=== PATIENT | female | born 1990 | race Caucasian/White ===

== ENCOUNTER 2024-11-24 12:19 | Observation (INO) | payer OTHER, SELFPAY ==
[2024-11-24] VITALS (14 sets, daily range): BP systolic 105–144; BP diastolic 68–89; PULSE 70–103; RESP 12–24; TEMP 36.2–36.7; O2SAT 94–100; BMI 22.8
--- NOTE | 2024-11-24 | PATH_ITS ---
[facility] Accession Number: [id number] No. of containers..01 Tissue . 01 Material submitted: . product of conception - PRODUCT OF CONCEPTION . 01 Diagnosis: PRODUCTS OF CONCEPTION: Products of conception identified. Outside consultation requested to evaluate for molar gestation ([facility]); results will be reported as an addendum. ADITHYA 11/28/2024 1400 Local . 01 Electronically signed: . Mirta Chang MD, Pathologist NPI- [id number] . 01 Gross description: . Received in formalin with two identifiers and products of conception, are multiple horan spongy to hemorrhagic soft tissue fragments aggregating to 14.8 x 11.1 x 4.5 cm. No tissue is identified. Awning Spreader sections are submitted in cassettes A1-A2. ([id number]) /ADITHYA 11/25/2024 2106 Local . 01 Pathologist provided ICD-10: T83.39XS . 01 CPT . 583541 Specimen Comment: A courtesy copy of this report has been sent to [facility] Pathology Performed at: [address] [address], [place], [place] [id number] MD Jose Antonio Templeton MD Phone: [phone]
--- NOTE | 2024-11-24 13:34 | ED_ITS ---
HPI - General Adult General Chief complaint: Urogenital-Female Stated complaint: experiencing severe prolapse, bleeding Time Seen by Provider: 11/24/24 12:24 Source: patient Mode of arrival: Ambulatory History of Present Illness HPI narrative: Patient was a 34-year-old female. . Two prior vaginal deliveries. Last vaginal delivery was 4 years ago. Has a ParaGard IUD that was placed approximately 2 weeks ago. She was here for evaluation of what she states is a concern for cervical prolapse. She also reports constipation. Issues with urination to include urgency and frequency. No prior abdominal surgeries. No vomiting. No fevers. She was sexually active with a new partner. No history of sexually transmitted diseases. Related Data Home Medications Medication Instructions Recorded Confirmed lactic acid 1.8 %-citric ac 1 vaginal 10/24/24 11/07/24 %-potassium bitartate 0.4 % vaginal gel (Phexxi) thyroid (pork) 180 mg tablet 180 mg PO DAILY 10/24/24 11/07/24 ([place] Thyroid) valacyclovir 1 gram tablet 1,000 mg PO BID 10/24/24 11/07/24 Allergies Allergy/AdvReac Type Severity Reaction Status Date / Time No Known Drug Allergies Allergy Unverified 11/07/24 11:29 Review of Systems Review of Systems ROS Unobtainable: All systems reviewed & are unremarkable except as noted in HPI and below Patient History Medical History Plantar warts (~2020) Migraines (~2017) Shoulder pain (~2019) Carpal tunnel syndrome (~2019) Ankle pain (~2019) Foot pain (~2019) Painful menstrual periods (~1999) Irregular menstrual cycle (~1999) Heavy menstrual period (~2019) Hemorrhoid Pituitary adenoma (~03/2021) Hypothyroidism (~2007) Hypertension (~2019) [place] disease (~03/2022) Surgical History (Updated 10/31/24 @ 20:50 by Luly Sommers) History of brain surgery (~03/2022) Hx of cholecystectomy (~2010) Social History Smoking Status: Never smoker Smoking Status: Never smoker Exam Initial Vital Signs Initial Vital Signs: Vital Signs Pulse Rate 70 11/24/24 12:25 Pulse Oximetry 98 11/24/24 12:25 Const General: cooperative, comfortable and No ill appearing GI Inspection: normal to inspection and non-distended Other: Normal external exam. No lesions. Patient did have quite a bit of mucus in the vaginal vault but no bleeding. Cervix was very anterior. I could not visualize the IUD strings. With bimanual exam I could feel the strings. Cultures were obtained. I feel what appears to be a distended bladder on the bimanual exam. RICCI Iglesias was the standby Skin General: no rashes or lesions noted Neuro General: patient alert, patient awake and moves all extremities Extrem General: normal to inspection and capillary refill normal Course Orders Ordered: ED Orders 11/24/24 13:33 Genital Culture Stat NANDO prep [NANDO Prep] Stat Wet Prep Tric BV Jaz Stat 11/24/24 13:39 Urine Culture Stat Urine Microscopic Stat 11/24/24 13:57 OB <= 14 weeks fetus Stat 11/24/24 14:08 ABO RH Type Stat Basic Metabolic Panel Stat Complete Blood Count AUTO DIFF Stat HCG Quantitative /Beta subunit Stat 11/24/24 15:28 Consult to Obstetrics Stat Discontinued Medications Ketorolac Tromethamine (Ketorolac 30 Mg/Ml Vial) 15 mg IV NOW ONE Stop: 11/24/24 16:57 Last Admin: 11/24/24 17:01 Dose: 15 mg Documented By: RAMY Vital Signs Vital signs: Vital Signs - 8 hr 11/24/24 12:25 11/24/24 12:26 11/24/24 12:26 Temperature Pulse Rate 70 76 Respiratory Rate Blood Pressure 113/68 Pulse Oximetry 98 99 Oxygen Delivery Method 11/24/24 12:30 11/24/24 12:30 11/24/24 12:30 Temperature 98.1 F Pulse Rate 70 75 Respiratory Rate 20 Blood Pressure 113/68 111/69 Pulse Oximetry 100 99 Oxygen Delivery Method Room Air 11/24/24 13:00 11/24/24 15:08 11/24/24 15:09 Temperature Pulse Rate 82 74 Respiratory Rate Blood Pressure 144/89 H Pulse Oximetry 99 99 Oxygen Delivery Method Room Air 11/24/24 15:09 Temperature Pulse Rate 81 Respiratory Rate Blood Pressure Pulse Oximetry 100 Oxygen Delivery Method Room Air Medical Decision Making Medical Records Medical records reviewed: Yes I reviewed the patient's medical records. Lab Data Lab results reviewed: Yes I reviewed the patient's lab results. 11/24/24 14:08 11/24/24 14:08 Labs: Lab Results 11/24/24 11/24/24 Range/Units 13:39 14:08 WBC 16.4 H (4.5-11.0) X10^3/uL RBC 4.23 (4.0-5.2) X10^6/uL Hgb 12.9 (12.0-16.0) g/dL Hct 38.2 (36-46) % MCV 90.4 (80-100) fL MCH 30.5 (26-34) PG MCHC 33.7 (30-36) % RDW 13.7 (11.6-14.8) % Plt Count 303 (150-400) X10^3/uL Neut % (Auto) 80.4 H (50-75) % Lymph % (Auto) 14.0 L (25-40) % [place] % (Auto) 3.3 (3-14) % Eos % (Auto) 2.0 (2-4) % Baso % (Auto) 0.3 (0-2) % Neut # (Auto) 64990 H (3599-0020) /uL Lymph # (Auto) 2300 (0875-7064) /uL [place] # (Auto) 500 (0-900) /uL Eos # (Auto) 300 (0-450) /uL Baso # (Auto) 100 (0-100) /uL Sodium 134 L (137-145) mmol/L Potassium 3.7 (3.4-5.1) mmol/L Chloride 103 (98-107) mmol/L Carbon Dioxide 25 (22-32) mmol/L BUN 15 (7-17) mg/dL Creatinine 0.94 (0.52-1.04) mg/dL Estimated GFR > 60 (>60) mL/min BUN/Creatinine Ratio 16.0 (6-22) Glucose 87 (70-100) mg/dL Calcium 9.2 (8.4-10.2) mg/dL HCG, Quant 94763 mIU/mL Urine RBC None seen (0-5/HPF) Urine WBC 1-5/hpf (0-5/HPF) Ur Squamous Epith Cells None seen (0-5/HPF) Urine Bacteria None seen (None) Ur Culture Indicated? Specimen cultured Vol Urine Centrifuged 10ml (spun) Blood Type O Positive Point of Care Testing Test Results Positive Urine Dip Bedside Urine Glucose Negative Bedside Urine Bilirubin - Negative Bedside Urine Ketone - Negative Urine Specific [place] 1.010 Bedside Urine Occult Blood - Negative Bedside Urine pH 7.0 Bedside Urine Protein - Negative Bedside Urine Urobilinogen - Negative Bedside Urine Nitrite - Negative Bedside Urine Leukocytes +/- 15 Esterase Point of care testing: Point of Care Testing Test Results Positive Urine Dip Bedside Urine Glucose Negative Bedside Urine Bilirubin - Negative Bedside Urine Ketone - Negative Urine Specific [place] 1.010 Bedside Urine Occult Blood - Negative Bedside Urine pH 7.0 Bedside Urine Protein - Negative Bedside Urine Urobilinogen - Negative Bedside Urine Nitrite - Negative Bedside Urine Leukocytes +/- 15 Esterase Imaging Data US - OB: Radiologist's Impression: PROCEDURE: US OB <= 14 WEEKS FETUS INDICATIONS: Unknown dates, positive test OUTSIDE/PRIOR DATING DATA: Last menstrual period (LMP): 10/18/2024. LMP-based estimated date of delivery (CELY): 07/25/2025. First dating scan (date and location): 11/24/2024. Estimated date of delivery (CELY) from first dating scan: 06/28/2025. TECHNIQUE: Real-time scanning was performed of the fetus and maternal pelvic organs, with image documentation. Endovaginal scanning was also performed to better visualize the fetus and maternal ovaries. COMPARISON: None. FINDINGS: Single living intrauterine is present. An IUD is present within the mid to lower uterine segment. Embryo: Present, measuring 2.5 cm, corresponding to 9 weeks 1 day. Heart rate: 185 beats per minute Maternal organs: Ovaries are unremarkable. IMPRESSION: Single living intrauterine at 9 weeks 1 day, CELY of 06/28/2025. IUD within the mid to lower uterine segment. tachycardia. Attention on follow-up. [facility] Narrative Medical decision making narrative: Patient did have a positive test. Ultrasound does show 9 week fetus. IUD is in place. There was no signs of infection or endometritis. I did discuss the case with Dr. Malone on-call for glassware defect repairer who evaluated the patient here in the emergency department. After discussion with the patient the plan was to take the patient to the operating room for a D&C. Patient was stable. Discharge Plan Departure Patient Disposition: Admitted to Surgery Clinical Impression: IUD complication, Abdominal cramping Prescriptions: No Action [place] Thyroid 180 mg tablet 180 mg PO DAILY Phexxi 1.8-1-0.4 % gel vaginal valacyclovir 1 gram tablet 1,000 mg PO BID
[2024-11-24 13:57] LABS: Urine Volume 10mL (spun)
--- NOTE | 2024-11-24 13:57 | DI.US.S_ITS ---
PROCEDURE: US OB <= 14 WEEKS FETUS INDICATIONS: Unknown dates, positive test OUTSIDE/PRIOR DATING DATA: Last menstrual period (LMP): 10/18/2024. LMP-based estimated date of delivery (CELY): 07/25/2025. First dating scan (date and location): 11/24/2024. Estimated date of delivery (CELY) from first dating scan: 06/28/2025. TECHNIQUE: Real-time scanning was performed of the fetus and maternal pelvic organs, with image documentation. Endovaginal scanning was also performed to better visualize the fetus and maternal ovaries. COMPARISON: None. FINDINGS: Single living intrauterine is present. An IUD is present within the mid to lower uterine segment. Embryo: Present, measuring 2.5 cm, corresponding to 9 weeks 1 day. Heart rate: 185 beats per minute Maternal organs: Ovaries are unremarkable. IMPRESSION: Single living intrauterine at 9 weeks 1 day, CELY of 06/28/2025. IUD within the mid to lower uterine segment. tachycardia. Attention on follow-up. We strive to produce accurate, complete, and clear reports of imaging services. To assist us in improving patient care, this report was composed using standard report templates and voice recognition software. Therefore, it may contain abnormal punctuation, insertions and/or omissions. Occasional wrong-word or sound-alike substitutions may occur. Though we review the report and make efforts to correct it, we do recommend that the report be read carefully in proper context to recognize any text inaccuracies. Dictated by: Allen Valdivia M.D. on 11/24/2024 at 14:59 Approved by: Allen Valdivia M.D. on 11/24/2024 at 15:01
[2024-11-24 14:02] LABS: Bacteria Urine None Seen; Culture Indicated Urine Specimen Cultured; RBC Urine None Seen (0-5/HPF); Squamous Epithelial Cell Urine None Seen (0-5/HPF); WBC Urine 1-5/HPF (0-5/HPF)
[2024-11-24 14:16] LABS: Add Manual Diff / Slide Review NO; Basophils Absolute Auto 100 /uL (0-100); Basophils Percent Auto 0.3 % (0-2); Eosinophils Absolute Auto 300 /uL (0-450); Hematocrit 38.2 % (36-46); Hemoglobin 12.9 g/dL (12.0-16.0); Lymphocytes Absolute Auto 2300 /uL (1100-4500); Mean Corpuscular HGB Conc 33.7 % (30-36); Mean Corpuscular Hemoglobin 30.5 PG (26-34); Mean Corpuscular Volume 90.4 fL (80-100); Monocytes Absolute Auto 500 /uL (0-900); Monocytes Percent Auto 3.3 % (3-14); Neutrophils Absolute Auto 13200 /uL (1500-7000); Neutrophils Percent Auto 80.4 % (50-75); Platelet Count 303 X10^3/uL (150-400); Red Blood Cell Count 4.23 X10^6/uL (4.0-5.2); Red Cell Distribution Width 13.7 % (11.6-14.8); White Blood Cell Count 16.4 X10^3/uL (4.5-11.0)
[2024-11-24 14:29] LABS: Blood Urea Nitrogen 15 mg/dL (7-17); Calcium 9.2 mg/dL (8.4-10.2); Carbon Dioxide 25 mmol/L (22-32); Chloride 103 mmol/L (98-107); Estimated Glomerular Filt Rate > 60 mL/min (>60); Glucose 87 mg/dL (70-100); HEMOLYSIS < 15 (0-50); Potassium 3.7 mmol/L (3.4-5.1); Sodium 134 mmol/L (137-145)
[2024-11-24 15:11] LABS: HCG Quantitative /Beta subunit 94889 mIU/mL
--- NOTE | 2024-11-24 15:13 | PC.NURSE ---
including this this will make the patient a .
[2024-11-24] MEDS: KETOROLAC 30 MG/ML VIAL 15 MG IV (17:01)
--- NOTE | 2024-11-24 18:01 | P.HPOB_ITS ---
History of Present Illness History of Present Illness Narrative: Felisha Christianson is a 34 year old female who presents to ED with c/o increasing pelvic pain michelle to contractions, sensation of cervical prolapse s/p initiation of LARC with copper IUD in office 11/07/24. Patient had called office earlier today with concerns with planned close interval outpatient f/u in office 11/28 however her pain increased and she presented to ED for evaluation. Pelvic exam was noted to be unremarkable, however palpable full bladder with concern for urinary retention and pelvic US was ordered to confirm proper IUD placement. US resulted significant for previously undiagnosed 9wga IUP with +cardiac activity. TRAINMAN consulted for further evaluation and management recommendations. On entering room patient is resting in supine position, uncomfortable appearing but NAD. Unplanned, undesired . Management options reviewed including expectant, removal of IUD with serial monitoring of thereafter versus proceeding to OR tonight for suction D&C/TAB with removal of current copper IUD, replacement with new device. In shared decision making model patient strongly desires to proceed with surgical management tonight. Last solid PO intake >12h, has had small sips of water since arriving to ED at 12pm. PMHx notable for h/o prior brain surgery/resection of pituitary tumor without chronic steroid dependence, no indication for stress-dose steroids at time of procedure. [facility] Medical History Plantar warts (~2020) Migraines (~2017) Shoulder pain (~2019) Carpal tunnel syndrome (~2019) Ankle pain (~2019) Foot pain (~2019) Painful menstrual periods (~1999) Irregular menstrual cycle (~1999) Heavy menstrual period (~2019) Hemorrhoid Pituitary adenoma (~03/2021) Hypothyroidism (~2007) Hypertension (~2019) [place] disease (~03/2022) Surgical History (Updated 10/31/24 @ 20:50 by Luly Sommers) History of brain surgery (~03/2022) Hx of cholecystectomy (~2010) Social History Smoking Status: Never smoker Meds Home Medications and Allergies Home Medications Medication Instructions Recorded Confirmed Type thyroid (pork) 180 mg tablet 180 mg PO DAILY 10/24/24 11/24/24 History ([place] Thyroid) somatropin 15 mg/1.5 mL (10 mg/mL) mg SUBCUT 11/24/24 History subcutaneous pen injector (Norditropin FlexPro) Allergies Allergy/AdvReac Type Severity Reaction Status Date / Time No Known Drug Allergies Allergy Unverified 11/07/24 11:29 Review of Systems Review of Systems ROS: Yes All systems reviewed with the patient and are negative except as otherwise documented Exam Vital Signs (past 8 hours): - 11/24/24 12:25 11/24/24 12:26 11/24/24 12:26 Temperature Pulse Rate 70 76 Respiratory Rate Blood Pressure 113/68 Pulse Oximetry 98 99 Oxygen Delivery Method 11/24/24 12:30 11/24/24 12:30 11/24/24 12:30 Temperature 98.1 F Pulse Rate 70 75 Respiratory Rate 20 Blood Pressure 113/68 111/69 Pulse Oximetry 100 99 Oxygen Delivery Method Room Air 11/24/24 13:00 11/24/24 15:08 11/24/24 15:09 Temperature Pulse Rate 82 74 Respiratory Rate Blood Pressure 144/89 H Pulse Oximetry 99 99 Oxygen Delivery Method Room Air 11/24/24 15:09 11/24/24 17:16 11/24/24 17:17 Temperature Pulse Rate 81 82 Respiratory Rate Blood Pressure Pulse Oximetry 100 97 94 Oxygen Delivery Method Room Air Room Air 11/24/24 17:17 Temperature Pulse Rate Respiratory Rate Blood Pressure 110/68 Pulse Oximetry Oxygen Delivery Method Oxygen Delivery Method Room Air Const General: cooperative and No acute distress Nutritional Appearance: average body habitus Orientation: alert, awake and oriented x3 Limitations: mental status not altered Resp Effort & Inspection: normal respiratory effort and able to speak in complete sentences Cardio Pulses: normal peripheral pulses GI Inspection: normal to inspection Other: deferred, see ED documentation of pelvic exam Skin General: no rashes or lesions noted Neuro General: patient alert, patient awake and patient oriented x3 Extrem General: normal to inspection Psych Mental Status: mental status grossly normal Judgment: judgment good Objective Imaging US - abdomen: My impression: IUD visible in lower uterine segment without encroachment on gestational sac Radiologist's impression: Single living intrauterine at 9 weeks 1 day, CELY of 06/28/2025. IUD within the mid to lower uterine segment. Labs 11/24/24 14:08 11/24/24 14:08 Labs: Laboratory Results - last 24 hr 11/24/24 11/24/24 13:39 14:08 WBC 16.4 H RBC 4.23 Hgb 12.9 Hct 38.2 MCV 90.4 MCH 30.5 MCHC 33.7 RDW 13.7 Plt Count 303 Neut % (Auto) 80.4 H Lymph % (Auto) 14.0 L [place] % (Auto) 3.3 Eos % (Auto) 2.0 Baso % (Auto) 0.3 Neut # (Auto) 57486 H Lymph # (Auto) 2300 [place] # (Auto) 500 Eos # (Auto) 300 Baso # (Auto) 100 Sodium 134 L Potassium 3.7 Chloride 103 Carbon Dioxide 25 BUN 15 Creatinine 0.94 Estimated GFR > 60 BUN/Creatinine Ratio 16.0 Glucose 87 Calcium 9.2 HCG, Quant 84242 Urine RBC None seen Urine WBC 1-5/hpf Ur Squamous Epith Cells None seen Urine Bacteria None seen Ur Culture Indicated? Specimen cultured Vol Urine Centrifuged 10ml (spun) Blood Type O Positive Assessment & Plan Assessment and plan (1) IUD complication: Qualifiers: Mechanical complication type: other Encounter type: sequela Device complication type: mechanical Qualified Code(s): T83.39XS - Other mechanical complication of intrauterine contraceptive device, sequela Status: Acute Plan 34yo at 9wga with unintended IUP s/p initiation of LARC (copper IUD) 11/07/24 IUD complication, undesired as per HPI, patient desires to proceed with definitive surgical management, OR aware and will proceed once staffing available strict NPO except for meds patient is consented for exam under anesthesia, removal of current copper IUD, suction dilation and curettage for purposes of surgical TAB, placement of new copper IUD risks, benefits and alternatives to procedure reviewed; patient verbalizes understanding and desires to proceed anticipate dc to home following recovery, will send message to office hander in to request routine postoperative assessment in 1-2wks for pelvic US/IUD placement confirmation dispo: to OR Time-Based Coding :: [TOTAL MINUTES] spent with patient and on the chart (including review of chart, obtaining history, exam, reviewing outside data, placing orders, documenting exam and treatment plan, and counseling patient) on [DATE].
--- NOTE | 2024-11-24 18:05 | PM.PREOP ---
Pre-operative Note Interval Note History & Physical reviewed/Exam performed by Physician: Yes Changes to H&P: No H&P completed within 30 days and has changed as indicated here:: 11/24/24 ASA Class (for procedural sedation): II
[2024-11-24] MEDS: LACTATED RINGERS 1,000 ML 42 ML IV (18:40)
--- NOTE | 2024-11-24 19:00 | SUR.OPER ---
Lithotomy on padded OR bed, head on pillow, arms secured on padded arm boards at <90 degrees abduction. Legs secured in padded yellow fins stirrups.
--- NOTE | 2024-11-24 19:42 | P.OP_ITS ---
Operative Date/Time/Diagnoses Date of procedure: 11/24/24 Time of procedure: 19:42 Pre-op diagnosis: IUD complication, undesired Post-op diagnosis: same Procedure & Clinicians Procedure: EUA, suction D&C, removal/reinsert copper IUD Same procedure as scheduled: Yes Indications: IUD complication, undesired Surgeon: Marycamren Malone Click Yes if Unassisted: Yes Anesthesia Type: General Operative Notes Findings: patulous parous cervix -1 from hymenal ring, 1.5cm dilated on digital exam without active bleeding 10-12wk sized gravid uterus IUD strings noted at external os Closure Type: not applicable Specimen(s): other (products of conception) Prosthetic devices, grafts, tissues, transplants, or devices: copper IUD (Paragard) obtained from office supply Lot [id number] Estimated Blood Loss (mL): 300 Procedure in detail: Pt was taken to the operating room, transferred to OR table and anesthesia was induced with placement of ETT.? Pt had her legs placed in Jason stirrups and ex am under anesthesia was performed.? The patient was prepped and draped in a sterile fashion.? A time out was performed.? The bladder was emptied via straight catheter in sterile fashion.? A sterile speculum was inserted into the vagina.? The cervix was visualized and grasped anteriorly using a single tooth tenaculum.? IUD strings visualized at external os were grasped with ring forceps and under gentle traction device removed easily; visually inspected and noted to be intact. The uterus sounded to 12 cm. The 9mm curved suction curette was inserted into the uterus and the uterine contents were evacuated. Uterine contents were visually inspected and noted to be consistent with products of conception.? The uterus was sharply curetted until a gritty texture was noted throughout, followed by additional single pass with suction curette.? The new paragard IUD obtained from office supply was placed per gas and oil checker instructions, strings trimmed to 2cm. Hemostasis was noted.? The tenaculum was removed and hemostasis was noted at insertion sites.? Speculum removed.? Hemostasis was again confirmed to be excellent. The patient then had her legs taken out of stirrups.? The patient tolerated the procedure well and without difficulty.? The patient was awakened from anesthesia and taken to PACU in stable condition. Complications: none Post-operative Condition: stable Disposition: PACU Plan for aftercare: anticipate dc to home pending clinical course, routine f/u in office; pt will be called to schedule
[2024-11-24] MEDS: DOXYCYCLINE HYCLATE 100 MG TABLET 200 MG PO (19:47)
[2024-11-24] MEDS: ONDANSETRON 4 MG/2 ML INJ IV (19:52)
[2024-11-24] MEDS: OXYCODONE IR 5 MG TABLET PO (19:52)
== END 2024-11-24 20:25 | disposition home or self-care (01) ==
LOC: ED 18:43 → AC 18:46
PROVIDERS: Admitting Provider Obstetrics & Gynecology; Emergency Provider Emergency Medicine; PCP Massage Therapist; Referring Provider Emergency Medicine; Visit Provider Obstetrics & Gynecology
PROC: (CPT 57410; principal; 2024-11-24 18:45)
PROC: (CPT 58120; 2024-11-24 18:45)
PROC: (CPT 58301; 2024-11-24 18:45)
DX: O02.1 Missed abortion (principal); Z30.433 Encounter for removal and reinsertion of intrauterine contraceptive device; O26.31 Retained intrauterine contraceptive device in pregnancy, first trimester; Z3A.09 9 weeks gestation of pregnancy
CPT/HCPCS: 58301; 58300; 59820; 36415; 51798; 76801; 80048; 81003; 81015; 81025; 84702; 85025; 86900; 86901; 87070; 87086; 87205; 87210; 87220; 96374; 96375; 99284; G0378; C1713; J1100; J1885; J2405; J2704; J3010

== ENCOUNTER 2025-01-01 06:16 | Day surgery (SDC) | payer OTHER, SELFPAY ==
[2024-12-26 09:10] VITALS: BMI 22.8
[2025-01-01] VITALS (13 sets, daily range): BP systolic 89–114; BP diastolic 52–71; PULSE 70–108; RESP 12–18; TEMP 36.4–37; O2SAT 94–99; BMI 21.9
--- NOTE | 2025-01-01 | PATH_ITS ---
[facility] Accession Number: [id number] No. of containers..01 Tissue . 01 Material submitted: . uterus - UTERUS AND BILATERAL FALLOPIAN TUBES . 01 Diagnosis: UTERUS AND BILATERAL FALLOPIAN TUBES, SUPRACERVICAL HYSTERECTOMY AND BILATERAL SALPINGECTOMY (WEIGHT 178 GRAMS): Secretory endometrium; negative for endometrioid intraepithelial neoplasia or malignancy. Myometrium with no significant histomorphologic abnormality. Uterine serosa with no significant histomorphologic abnormality. Longer fallopian tube with benign paratubal cysts (up to 9 mm), complete cross-sections; negative for significant atypia. [place] fallopian tube with benign paratubal cysts (up to 9 mm), complete cross-sections; negative for significant atypia. [facility] 01/03/2025 1833 Local . 01 Electronically signed: . Mirta Chang MD, Pathologist NPI- [id number] . 01 Gross description: . Received in formalin with two identifiers and uterus and bilateral fallopian tubes, is a fragmented uterus (178 grams, 13.9 x 12.2 x 5.6 cm), with two unoriented fimbriated fallopian tubes (7.5 x 0.9 cm and 3.1 x 0.6 cm), with no cervix or additional adnexa identified. . The serosa is horan and wrinkled with no hemorrhage or lesions identified. The presumed endometrium is horan and velvety averaging 0.2 cm thick. The myometrium is horan and trabecular with no nodules identified. . Both tubes have horan smooth serosa with cysts up to 0.9 cm in greatest dimension filled with clear serous fluid. The lumen are stellate and unremarkable. . Trade Show Coordinator sections are submitted as follows: A1: Endometrium. A2: Possible endomyometrium. A3: Longer fallopian tube to include one-half of bisected fimbriae and cross-sections. A4: [place] fallopian tube to include one-half of bisected fimbriae and cross-sections. ([id number]) /ADITHYA 01/02/2025 0944 Local . 01 Pathologist provided ICD-10: N92.0 . 01 CPT . 828772 Specimen Comment: A courtesy copy of this report has been sent to [facility] Pathology Performed at: [address] [id number] MD Jose Antonio Templeton MD Phone: [phone]
--- NOTE | 2025-01-01 07:10 | PM.PREOP ---
Pre-operative Note Interval Note History & Physical reviewed/Exam performed by Physician: Yes Changes to H&P: No H&P completed within 30 days and has changed as indicated here:: 12/10/24 ASA Class (for procedural sedation): I
[2025-01-01] MEDS: LACTATED RINGERS 1,000 ML 42 ML IV (07:16)
[2025-01-01 07:17] LABS: Add Manual Diff / Slide Review NO; Basophils Absolute Auto 100 /uL (0-100); Eosinophils Absolute Auto 300 /uL (0-450); Eosinophils Percent Auto 5.7 % (2-4); Hematocrit 37.6 % (36-46); Hemoglobin 12.6 g/dL (12.0-16.0); Lymphocytes Absolute Auto 2500 /uL (1100-4500); Lymphocytes Percent Auto 48.8 % (25-40); Mean Corpuscular HGB Conc 33.6 % (30-36); Mean Corpuscular Hemoglobin 30.3 PG (26-34); Monocytes Absolute Auto 400 /uL (0-900); Monocytes Percent Auto 7.2 % (3-14); Neutrophils Absolute Auto 1900 /uL (1500-7000); Neutrophils Percent Auto 37.3 % (50-75); Platelet Count 236 X10^3/uL (150-400); Red Blood Cell Count 4.18 X10^6/uL (4.0-5.2); Red Cell Distribution Width 12.7 % (11.6-14.8); White Blood Cell Count 5.2 X10^3/uL (4.5-11.0)
[2025-01-01] MEDS: SCOPOLAMINE 1 PATCH TOP (07:19)
[2025-01-01] MEDS: ACETAMINOPHEN IV 1,000 MG/100 ML VIAL 400 MG IV (07:19)
[2025-01-01 07:54] LABS: COVID-19 CEPHEID 4-PLEX PCR Negative (Negative); Influenza A - CEPHEID Flu A POSITIVE (NEGATIVE); Influenza B - CEPHEID Flu B NEGATIVE (NEGATIVE); Respiratory Syncytial Virus Negative (Negative)
[2025-01-01] MEDS: CEFAZOLIN 2 GM/100 ML PREMIX 100 ML IV (08:05)
--- NOTE | 2025-01-01 08:22 | SUR.OPER ---
pt in the room prior to covd/flu results, anesthesia and MD both on board with proceding, pt also verballized understanding of risks and wanted to procede
--- NOTE | 2025-01-01 08:39 | SUR.OPER ---
Lithotomy on padded OR bed. [place] Pad Positioner under torso. Head on pillow, arms padded and tucked at sides. Legs secured in padded yellow fins stirrups.
[2025-01-01] MEDS: BUPIVACAINE 0.25% W/ EPI 30 ML VIAL INJ (09:10)
[2025-01-01] MEDS: ROPIVACAINE 0.2% PF 2 MG/ML 20ML AMP 20 ML INJ (09:36)
--- NOTE | 2025-01-01 11:30 | PM.OP.1 ---
Operative Date/Time/Diagnoses Date of procedure: 01/01/25 Time of procedure: 11:31 Pre-op diagnosis: AUB, symptomatic POP Post-op diagnosis: same Procedure & Clinicians Procedure: laparoscopic supracervical hysterectomy anterior posterior vaginal repair sacrospinous ligament fixation Same procedure as scheduled: Yes Indications: symptomatic POP, AUB Surgeon: Marycarmen Malone Packaging Assembler: Sulma Rivas Click Yes if Unassisted: No Anesthesia Type: General Operative Notes Findings: intra-abdominal survey notable for multiple areas of observed endometriotic implants (anterior uterine serosa, L fallopian tube, R fallopian tube, multiple flame lesions within posterior CDS), +cristian-rey alba sign grossly normal appearing bilateral ovaries, appendix enlarged globular uterus large anterior vaginal defect without urethral hypermobility large posterior defect without enterocele small perineal body Closure Type: primary Specimen(s): other (uterus, bilateral fallopian tubes ) Estimated Blood Loss (mL): 150 Procedure in detail: The patient was taken to the operating room, placed on the operating table in the supine position and intubated with ETT.? The patient was then placed in the lithotomy position with her legs in Jason stirrups.? The patient was then examined under anesthesia with the above findings, then prepped and draped in a sterile fashion.? A velasco catheter was placed.? Time out was performed. A sterile speculum was inserted into the vagina.? The anterior cervix was grasped with single tooth tenaculum and under gentle traction a zumi manipulator was placed and balloon inflated. The speculum was removed and attention was then turned to the abdominal portion of the case. The infraumbilical region was superficially infiltrated with 5cc of 0.5% marcaine with epinephrine. A 5mm incision was made infraumbilically and abdominal entry was achieved under direct visualization using the 5mm VisaPort trocar.? Abdomen was insufflated to 15mmHg.? Two lateral 5-mm ports were placed in a similar manner under direct visualization.? The uterus was anteverted and abdominal survey was noted with findings as noted above. The Powerseal was used to dissect bilateral fallopian tubes away from the mesosalpinx.? The utero-ovarian arter was burned and ligated followed by dissection of the round ligament with the Powerseal device.? This was repeated on the contralateral side.? The uterine arteries were skeletonized bilaterally, and with noted blanching of the uterine corpus the uterine arteries were ligated and dissected.? A bladder flap was developed and the bladder reflection was ensured to be below the level cervicouterine junction. A 2cm midline incision was marked 2cm superior to the pubic symphysis. This area was superficially infiltrated with local anesthetic as above and a 2cm incision was made sharply with the #10 blade. The 12mm port was placed via this incision and the Elif Loop was introduced. The wire loop was placed circumferentially around the base of the cervix and visually inspected ensuring the area was free of the bladder, adjacent vasculature and structures. Using monopolar cautery the loop was then closed with amputation of the specimen at the level of the endocervical os was achieved without difficulty. The wound bed was visually inspected and noted to be hemostatic. The laparoscopic monopolar spatula was then used to burn the endocervical canal to ensure no future bleeding from ectopic endometrial glands. The Elif loop was withdrawn from the 12mm port and the Endocatch bag was introduced via the same under direct visualization. The specimen was placed en bloc within the bag which was closed and brought to the level of the anterior abdomen. The patient was taken out of trendelenberg and the abdominal insufflation was released. The 12mm trocar was withdrawn and the endocatch bag was brought through the incision. The small Chandrakant retractor was then placed in standard fashion. The uterus was grasped using natalie clamps and morcellated using extra-coporeal C-incision technique. The Chandrakant retractor was then removed followed by the endocatch bag. The fascia of the suprapubic incision was then closed using 0-0 vicryl on a UR6 needle under direct visualization. Abdominal insufflation was resumed and with adequate pneumoperitoneum the patient was placed once more in trendelenberg position. The abdomen and pelvis was copiously suction irrigated with removal of all fluid and clot. The posterior cul-de-sac was saturated with 10cc of bupivicaine for for further opiate-sparing analgesia. Insufflation was once again stopped and pneumoperitnoeum was vented. All trocars were removed under direct visualization. The skin of all incisions was then closed using 4-0 monocryl in a subcuticular fashion followed by application of dermabond. With abdominal portion of case complete attention was then turned to vaginal portion of the procedure. A weighted speculum was placed in the vagina and the mid urethra identified visually and by palpation. The vaginal mucosa underlying the bladder was then infiltrated with 0.5% Marcaine with epinephrine and a longitudinal incision was made the full length of the anterior vaginal mucosa up to the cervix. A 3 layer plication of the pubocervical fascia with 0 Vicryl interrupted was then performed the full length of the anterior vaginal wall and 2 Nini plication stitches were placed at the bladder neck. The redundant portion of vaginal mucosa was then excised with Metzenbaum scissors and the anterior vaginal mucosa closed with 0 Vicryl in running interlocking stitches. Attention was then turned to the posterior vaginal wall and retractors were placed anteriorly. A fern-shaped excision involving the introitus, perineal body and distal vagina was then performed after infiltration of those tissues with 0.5% Marcaine with epinephrine. The excised skin over the perineal body and distal vagina was then discarded in preparation for subsequent perineoplasty. The posterior vaginal wall was then infiltrated its full length with 0.5% Marcaine with epinephrine and a longitudinal incision of the posterior vaginal wall was accomplished with Metzenbaum scissors after undermining the vaginal mucosa. The vaginal mucosa was then dissected off underlying rectovaginal tissues and preparations made for sacral spinous ligament fixation. The perirectal space on the right side was dissected bluntly and the right sacral spinous ligament identified by palpation. A Capio device with 0 permanent suture was then placed through the mid 3rd of the sacrospinous ligament on the right side and the free needle end of the Capio was used to place a deepika stitch into the cervical stroma on the right side near the apex. The vaginal apex was then elevated and the suspension suture tied. The rectovaginal and pararectal tissues were then plicated in 2 layers the full length of the vagina and hemostasis was excellent. The redundant vaginal mucosa was then removed with Metzenbaum scissors and the posterior vaginal wall mucosa was then closed with 0 Vicryl in running interlocking stitches. The repair was then carried down to the introitus and perineoplasty performed with 0 Vicryl and 2-0 Vicryl in the usual manner. Excellent support of both the anterior and posterior vaginal beckham was noted and the genital hiatus was reduced significantly with performance of the perineoplasty. The retractors were then removed from the vagina, and the vaginal portion of the procedure terminated. Rectal exam was performed confirming the absence of suture or rectal defect; gloves changed. Vaginal hemostasis was noted and a moistened vaginal packing was placed in the vagina to assist with further hemostasis prophylaxis in the immediate postoperative period. All counts correct x2. The patient was awakened from anesthesia, extubated and transported to PACU in stable condition without complication. Complications: none Post-operative Condition: stable Disposition: PACU Plan for aftercare: routine postop care, admission overnight for observation, anticipated dc to home POD1
[2025-01-01] MEDS: OXYCODONE IR 5 MG TABLET PO ×4 (11:57→19:58)
[2025-01-01] MEDS: HYDROMORPHONE 1 MG INJ IV ×2 (12:08→12:14)
[2025-01-01] MEDS: hydrOXYzine 50 MG/ML INJ 25 MG IM (12:44)
[2025-01-01] MEDS: ACETAMINOPHEN 325 MG TABLET 650 MG PO ×2 (14:42→19:59)
[2025-01-01] MEDS: MORPHINE 4 MG/ML INJ IV (15:01)
[2025-01-01] MEDS: SODIUM CHLORIDE 0.9% 500 ML 1000 ML IV (17:33)
[2025-01-01] MEDS: KETOROLAC 30 MG/ML VIAL IV ×2 (17:37→23:53)
[2025-01-01] MEDS: SODIUM CHLORIDE 0.9% 1,000 ML 75 ML IV (18:13)
--- NOTE | 2025-01-01 19:45 | PC.NURSE ---
Patient arrives from PACU at 1330 this afternoon. She is A&OX4, VSS, afebrile on RA. SBP soft 100's. She reports pain to abdomen 5/10, x4 lap sites to abdomen RELAY TELEGRAPHER dermabond, C/D/I.Segovia in placed draining clear light yellow urine She reports pain increasing after scheduled pain meds given and she is given prn 4 mg morphine for severe pain 7/10. Shortly after, SBP 80's/50's patient reports feeling slightly dizzy. MD Notified and received orders for 500 cc NS bolus with IVF NS 75ml/hr after bolus. SBP improved to 90's. Patient still rating pain 7/10 increasing this evening after prn 5 mg oxycodone. MD notified and received order for addtional dose of 5mg oxycodone. Endorsed to oncoming RN. MD plans to return in a.m. to d/c vaginal packing.
[2025-01-01] MEDS: HYDROMORPHONE 0.5 MG INJ IV (21:52)
[2025-01-01] MEDS: MAGNESIUM CITRATE 300 ML SOLUTION 150 ML PO (21:52)
[2025-01-02] VITALS: BP 104/59; PULSE 73; RESP 16; O2SAT 97
[2025-01-02] MEDS: MORPHINE 4 MG/ML INJ IV ×3 (00:57→11:00)
[2025-01-02] MEDS: ACETAMINOPHEN 325 MG TABLET 650 MG PO ×4 (00:58→20:51)
[2025-01-02 01:45] VITALS: BP 88/54; PULSE 61; RESP 18; TEMP 36.7; O2SAT 97
--- NOTE | 2025-01-02 03:00 | PC.NURSE ---
NOC: Pt experiencing 7-8 out of 10 post-op pain during shift. No improvement after PO oxycodone 5mg. Franchesca Moise contacted MD Malone, who ordered an additional dose PO oxycodone 5mg. Reassessed after an hour; no improvement. BPs soft (90s systolic, see VS) and pt reports slight dizziness, but other VSWNL. Contacted MD Malone re: possible alternative to morphine. MD malone provided verbal order for 0.5mg hydromorphone IVP PRN; pt reports pain down to 6/10. Around midnight, pt called stated 7/10 pain and worse with movement. BP 104/59; provided prescribed 4mg morphine IVP. Reassessed 30 min later; pt reports pain down to 2/10. Reassessed at 0230, pt reports very comfortable and denies dizziness or lightheadedness. Pt currently resting, call light within reach, bed low/locked, plan of care continues. During shift, pt expressed concern re: pain management post-discharge. Pt stated I don't want to go home and then have to come back because I'm in so much pain. Encouraged pt to bring up concerns with MD in AM. Will relay to franchesca WYNNE.
[2025-01-02 04:47] LABS: Add Manual Diff / Slide Review NO; Basophils Absolute Auto 0 /uL (0-100); Basophils Percent Auto 0.2 % (0-2); Eosinophils Absolute Auto 0 /uL (0-450); Eosinophils Percent Auto 0.6 % (2-4); Hematocrit 27.2 % (36-46); Hemoglobin 9.3 g/dL (12.0-16.0); Lymphocytes Absolute Auto 1800 /uL (1100-4500); Lymphocytes Percent Auto 23.2 % (25-40); Mean Corpuscular HGB Conc 34.1 % (30-36); Mean Corpuscular Hemoglobin 30.8 PG (26-34); Mean Corpuscular Volume 90.2 fL (80-100); Monocytes Absolute Auto 500 /uL (0-900); Monocytes Percent Auto 6.3 % (3-14); Neutrophils Absolute Auto 5400 /uL (1500-7000); Neutrophils Percent Auto 69.7 % (50-75); Platelet Count 170 X10^3/uL (150-400); Red Blood Cell Count 3.02 X10^6/uL (4.0-5.2); Red Cell Distribution Width 12.9 % (11.6-14.8); White Blood Cell Count 7.8 X10^3/uL (4.5-11.0)
[2025-01-02] MEDS: KETOROLAC 30 MG/ML VIAL IV (05:34)
[2025-01-02] MEDS: SODIUM CHLORIDE 0.9% 1,000 ML 75 ML IV (06:16)
[2025-01-02 08:20] VITALS: BP 94/56; PULSE 60; RESP 14; TEMP 36.6; O2SAT 97
[2025-01-02] MEDS: OXYCODONE IR 5 MG TABLET PO (08:43)
[2025-01-02] MEDS: MAGNESIUM CITRATE 300 ML SOLUTION 150 ML PO (08:44)
--- NOTE | 2025-01-02 08:50 | P.DS_ITS ---
History of Present Illness History of Present Illness Date Patient Seen: 01/02/25 Time Patient Seen: 08:00 Date of Onset of Symptoms: 01/01/25 Chief complaint: POD1 Narrative: Pt states that she is feeling ok this AM, still having pain localized to suprapubic incision. Tolerating diet, +flatus. Did require 2 doses of IV analgesia secondary to inadequate response to PO oxycodone (5 and 10mg). Amenable to having vaginal packing removed this AM. Velasco still in place at time of AM rounds. CAMARENA per regional vice president surgical sales Providers Provider Date of admission: 01/01/25 Discharge Date: 01/02/25 Primary care physician: Isi Cramer Consults: 01/01/25 13:54 Consult to GRINDER BRAKE LINING - Blend Technician Routine Comment: Blend Technician Consult needed for:: Other reason (Comment) Comment: pt states worried she may be losing her job Discharge provider: Marycarmen Malone MD Summary Hospital Course Discharge Diagnosis: s/p laparoscopic supracervical hysterectomy with anterior/posterior vaginal repair, sacrospinous ligament fixation Hospital Course: 34yo admitted to facility for planned surgical management of symptomatic stage 2 POP with GAETANO, chronic AUB with dysmenorrhea. Pt disclosed chronic cough for the past 6-8wks on admission and underwent rapid viral testing via nasal swab per anesthesia protocol that resulted significant for +influenza A. As patient was only minorly symptomatic and in otherwise excellent state of health, in shared decision making model between surgeon, anesthesia and patient decision made to proceed with procedure as scheduled. Patient underwent procedure without complication. Vaginal packing was removed on morning of POD1 and urinary velasco was discontinued. Patient was able to void spontaneously, ambulate without assistance, tolerating full diet without n/v with +flatus. Patient was discharged to home on afternoon of POD1 with in-person review of activity restrictions prior to discharge, planned outpatient postoperative f/u in 2 and 6 weeks. Status at Discharge Cognitive/behavioral status at discharge: oriented Functional status at discharge: independent ambulation Overall status at discharge: patient is back to baseline Time Spent with Patient Time spent: Greater than 30 minutes Exam Vital Signs (past 8 hours): - 01/02/25 01:45 Temperature 98.1 F Pulse Rate 61 Respiratory Rate 18 Blood Pressure 88/54 L Pulse Oximetry 97 Oxygen Flow Rate 0 Oxygen Delivery Method Room Air Oxygen Flow Rate 0 Const General: cooperative, healthy appearing, comfortable and well developed Nutritional Appearance: average body habitus Orientation: alert, awake and oriented x3 Limitations: mental status not altered Resp Effort & Inspection: normal respiratory effort and able to speak in complete sentences Cardio Pulses: normal peripheral pulses GI Palpation: soft Other: incision sites c/d/i, no erythema, mild TTP Other: velasco in place vaginal packing removed, ~50% saturated Skin General: no rashes or lesions noted Neuro General: patient alert, patient awake and patient oriented x3 Extrem General: normal to inspection Psych Mental Status: mental status grossly normal Judgment: judgment good Objective Labs 01/02/25 04:26 Labs: Laboratory Results - last 24 hr 01/02/25 04:26 WBC 7.8 RBC 3.02 L Hgb 9.3 L Hct 27.2 L MCV 90.2 MCH 30.8 MCHC 34.1 RDW 12.9 Plt Count 170 Neut % (Auto) 69.7 D Lymph % (Auto) 23.2 L D [place] % (Auto) 6.3 Eos % (Auto) 0.6 L Baso % (Auto) 0.2 Neut # (Auto) 5400 Lymph # (Auto) 1800 [place] # (Auto) 500 Eos # (Auto) 0 Baso # (Auto) 0 PFSH Medical History (Updated 11/27/24 @ 15:29 by Marycarmen Malone MD) Prolapse of female pelvic organs IUD complication Plantar warts (~2020) Migraines (~2017) Shoulder pain (~2019) Carpal tunnel syndrome (~2019) Ankle pain (~2019) Foot pain (~2019) Painful menstrual periods (~1999) Irregular menstrual cycle (~1999) Heavy menstrual period (~2019) Hemorrhoid Pituitary adenoma (~03/2021) Hypothyroidism (~2007) Hypertension (~2019) Harrington disease (~03/2022) Surgical History (Updated 12/26/24 @ 09:12 by Mable Nye RN) History of gynecologic surgery (11/24/24) History of brain surgery (~03/2022) Hx of cholecystectomy (~2010) Social History household members: family and children Smoking Status: Never smoker alcohol intake: current Discharge Assessment & Plan Assessment and Plan Assessment: 34yo POD1 s/p LSCH with A/P repair and SSLF Plan of Treatment: appropriate postoperative course dc to home with routine postoperative restrictions, care instructions Discharge Plan Discharge Plan Patient Disposition: Home Provider Discharge Comment: Nothing in the vagina for 6 weeks. Tub baths are ok after the first 2 weeks if the tub is cleaned well first. NO HEAVY LIFTING (more than 10-15lbs) for 6 weeks. No exercise more than gentle walking for the first 2 weeks. Discharge orders & Medications Discharge Orders: Discharge (Order); Ordered 01/02/25 Ordered By: Marycarmen Malone Prescriptions: New ibuprofen 800 mg tablet 800 mg PO Q8H Qty: 30 0RF acetaminophen 500 mg tablet 1,000 mg PO Q8HR Qty: 30 0RF lactulose 10 gram packet 20 g PO BID PRN (Reason: laxative effect) Qty: 15 5RF oxycodone 5 mg capsule 5 mg PO Q6H PRN (Reason: pain) Qty: 20 0RF Continued Startex Thyroid 180 mg tablet 180 mg PO DAILY Norditropin FlexPro 15 mg/1.5 mL (10 mg/mL) pen injector See Rx Instructions .ROUTE .COMPLEX Patient Comments: [NO ORIGINAL SIG] Rx Instructions: 0.05mls SQ daily Discontinued sennosides [Senna Lax] 8.6 mg tablet 8.6 mg PO DAILY PRN (Reason: constipation) Qty: 30 0RF fluconazole 150 mg tablet 150 mg PO Q3D Qty: 2 0RF Follow up/Referrals: Isi Cramer ND [Primary Care Provider] - Diet/Activity/Treatments Diet: Regular Skin/Wound/Dressing Care Report to your healthcare provider any signs of infection, such as:: increased pain and unusual drainage Visit Report/Discharge Packet Stand Alone Forms: Patient Portal/API Discharge Data Primary Care Provider: Isi Cramer Attending Provider: Marycarmen Malone VTE Deep Vein Thrombosis/Pulmonary Embolism Present on Admission: No IH PROFEE Charge Codes Discharge inpatient/observation: [id number]
--- NOTE | 2025-01-02 10:52 | CM.DANOTE ---
DCP Assessment Note Pt is a 34yo F POD1 lap hysterectomy with anterior and posterior vaginal repair. PCP Isi Cramer Payer [facility] and self pay METAL BUFFER reviewed EMR. Per OP note, surgeon found multiple notable areas of endometriotic implants/lesions/abnormal ovaries/enlarged uterus. Per RN notes/RN report, pt in a lot of pain overnight/this morning. pt needs to void as well. Per RN reprot, will try and get her OOB and moving to help with pain, BP also a bit low. Per chart review, pending dc summary but no order at this time. METAL BUFFER entered room and introduced self and role. pt reports living in [place] with two children. Boyfriend plans to stay with her at dc to help assist her and caring for children during recovery and is plan for her ride home. Reports only dc concern is being able to manage her pain at home. reports she will continue to talk with surgeon about her pain management dc plan. METAL BUFFER updated RN about pt's pain management concerns. P: anticipate dc later this afternoon with partner support and OP f/u. no CM needs identified at this time. CM team will continue to follow as needed SAYRA Knott Discharge Planning/Care Management CM Discharge Assessment Start: 01/02/25 10:51 Freq: Status: Active Protocol: Document 01/02/25 10:51 (Rec: 01/02/25 10:52 [id number]) Discharge Planning Assessment Assigned Dump Grounds Checker SAYRA Hess DPOA/Assigned Designee Name mother Walker Contact Information [phone] Advance Directives? No History Provided By Patient,Medical Record Prior Living Arrangements House Household Members family,children Type of transporation used prior to Drives own vehicle admit Independent with ADL's Yes Is patient alert and oriented? Yes Barriers to Discharge No Discharge Plan Home Transportation Arrangement boyfriend in POV Referrals Initiated None needed Review Status In Process Please Provide Date Initial DC 01/02/25 Assessment Was Performed Next Review Type Continued Stay Review Pre-Anesthesia Assessment Start: 12/26/24 09:10 Freq: Status: Complete Protocol: Document 12/26/24 09:10 CAB (Rec: 12/26/24 09:19 CAB [id number]) Pre-Anesthesia Assessment PAC Comment Chart review 12/26/24 Patient Information Reviewed Via Chart Review Primary Care Provider Iis Cramer Seen Specialist in Last 12 Months Yes Specialist Seen Emergency,Cement Mixer Primary Language Northern Irish Welt Rander Required No Height 175.26 cm Weight 70.307 kg Body Mass Index (BMI) 22.8 Hx Anesthesia Reactions No Hx Family Anesthesia Reaction No Hx Malignant Hyperthermia No Hx Blood Transfusion Reaction Yes Anesthesia Review Requested No Director [facility] No alcohol intake current alcohol intake frequency holidays/special occasions only Smoking Status Never smoker Substance Use Type [#R] does not use Patient is completely paralyzed or No completely immobile Mental Status Oriented to own ability Is patient on oxygen? No Hx Sleep Apnea No Currently Taking a Beta Acty No Anti-Coagulant Therapy No Cardiac Testing No Hx Pacemaker/ICD No Pacemaker Rep Required? No Cardiac Clearance Received No Urinary Catheter Present No Hx Urinary Self Catheterization No Diabetes No Patient No Lactating No Presence of External or Internal Medical No Devices Received a COVID vaccine? Yes Marital Status Single Patient Discharge Plan Description Return Home Do You Have Any Spiritual Beliefs That Yes May Affect Your HC Choices? Advance Directives? No
[2025-01-02 12:00] VITALS: BP 92/58; PULSE 62; RESP 16; O2SAT 97
[2025-01-02] MEDS: OXYCODONE IR 5 MG TABLET 10 MG PO ×3 (12:36→20:52)
[2025-01-02] MEDS: IBUPROFEN 600 MG TABLET PO ×3 (12:36→23:16)
[2025-01-02 18:00] VITALS: BP 92/57; PULSE 68; RESP 14; TEMP 36.2; O2SAT 98
--- NOTE | 2025-01-02 18:07 | PC.NURSE ---
Addendum entered by Ninfa Rai R.N. 01/02/25 18:56: Straight cath done, 750 ml drained clear yellow urine. Pt tolerated well. Time to reassess with bladder scan will be 2044. Pt aware. Pt's BP 90s/50s throughout shift, pt denies dizziness and is aymptomatic, HR in the 60-70s. MD is aware. Original Note: Day Shift Note Segovia catheter out this morning at [address] Malone removed vaginal packing. Pt reporting pain 6/10 in bed, medicated per emar. Assisted out of bed to attempt a void, pt with 10/10 pain when going from sitting to standing, medicated with morphine IV with good effect. Patient 1 person assist to bathroom. Dr. Malone notified of pain med needs and and order received for increased dose of oxycodone (10 mg) which was administered to pt. Pt reports pain well controlled after 10 mg oxycodone, updated Dr. Malone who will send in additional prescription for oxycodone on discharge. Pt up walking independently in halls this afternoon. Abdominal binder in place for patient comfort. At 1750 pt has still not voided despite increasing PO intake of fluids and increasing ambulation. Bladder scanned for 550 ml in bladder, pt reports distention and discomfort. Dr. Malone updated and order received to straight cath x1 and then reassess with bladder scan in 2 hours post cath and update with results. Pt discharge tenuous for this evening.
[2025-01-02 20:00] VITALS: BP 98/58; PULSE 60; RESP 16; TEMP 36.2; O2SAT 95
[2025-01-02] MEDS: SODIUM CHLORIDE 0.9% FLUSH 10 ML IV (20:52)
[2025-01-03 02:22] VITALS: BP 101/69; PULSE 64; RESP 15; TEMP 36.4; O2SAT 97
[2025-01-03] MEDS: OXYCODONE IR 5 MG TABLET 10 MG PO ×3 (02:25→09:56)
[2025-01-03] MEDS: IBUPROFEN 600 MG TABLET PO (06:10)
--- NOTE | 2025-01-03 06:50 | PC.NURSE ---
Biofuels Processing Technician Note-Early shift patient was having difficulty voiding, bladder scanned 495ml at 2100, contacted Dr. Malone who ordered to replace Segovia catheter. At 2130, patient voided 500ml yellow urine, still having small loose stools. Patient is requesting 10mg oxycodone approximately Q4h for lower abdominal stabbing, no bleeding noted.
--- NOTE | 2025-01-03 07:52 | PM.DS.IH.1 ---
History of Present Illness History of Present Illness Date Patient Seen: 01/03/25 Time Patient Seen: 07:53 Date of Onset of Symptoms: 01/01/25 Chief complaint: POD2 Narrative: Discharge held overnight as patient unable to adequately empty bladder. Initially notified by RN at 1800 of pt inability to void, bladder scan +500cc. Patient straight catheterized for 490cc urine, given 2h of rest and repeat bladder scan showed >400cc however pt only able to void <100cc. Order given discontinue discharge order, replace urinary velasco overnight for bladder rest with planned repeat voiding trial in AM. This morning RN reported that prior to velasco being replaced pt spontaneously voided 500cc and has been voiding spontaneously since without issue. MD not notified of this change overnight. Patient this AM states her pain is adequately controlled, passing both urine and stool without difficulty. Strongly desires dc to home. Discharge Providers Provider Date of admission: 01/01/25 Discharge Date: 01/03/25 Primary care physician: Isi Cramer Consults: 01/01/25 13:54 Consult to [facility] [place] - French Edge Operator Routine Comment: French Edge Operator Consult needed for:: Other reason (Comment) Comment: pt states worried she may be losing her job Discharge provider: Marycarmen Malone MD Summary Hospital Course Discharge Diagnosis: s/p laparoscopic supracervical hysterectomy with anterior/posterior vaginal repair, sacrospinous ligament fixation Hospital Course: 34yo admitted to facility for planned surgical management of symptomatic stage 2 POP with GAETANO, chronic AUB with dysmenorrhea. Pt disclosed chronic cough for the past 6-8wks on admission and underwent rapid viral testing via nasal swab per anesthesia protocol that resulted significant for +influenza A. As patient was only minorly symptomatic and in otherwise excellent state of health, in shared decision making model between surgeon, anesthesia and patient decision made to proceed with procedure as scheduled. Patient underwent procedure without complication. Vaginal packing was removed on morning of POD1 and urinary velasco was discontinued. Patient was unable to void spontaneously, straight catheterized >500cc and orders given to replace velasco for overnight bladder rest however pt subsequently able to void spontaneously and repeatedly without issue at approximately 2100 on POD1. Patient was discharged to home on POD2 meeting all discharge milestones, outpatient postoperative f/u in 2 and 6 weeks. Status at Discharge Cognitive/behavioral status at discharge: oriented Functional status at discharge: independent ambulation Overall status at discharge: patient is back to baseline Time Spent with Patient Time spent: Less than 30 minutes Exam Vital Signs (past 8 hours): - 01/03/25 02:22 Temperature 97.5 F L Pulse Rate 64 Respiratory Rate 15 Blood Pressure 101/69 Pulse Oximetry 97 Oxygen Delivery Method Room Air Oxygen Flow Rate 0 Const General: cooperative, comfortable and well developed Nutritional Appearance: average body habitus Orientation: alert, awake and oriented x3 Limitations: mental status not altered Resp Effort & Inspection: normal respiratory effort and able to speak in complete sentences Cardio Pulses: normal peripheral pulses GI Inspection: normal to inspection Other: incisions c/d/i Other: scant vaginal bleeding Skin General: no rashes or lesions noted Neuro General: patient alert, patient awake and patient oriented x3 Extrem General: normal to inspection Psych Mental Status: mental status grossly normal Judgment: judgment good Objective Labs 01/02/25 04:26 [facility] Medical History (Updated 11/27/24 @ 15:29 by Marycarmen Malone MD) Prolapse of female pelvic organs IUD complication Plantar warts (~2020) Migraines (~2017) Shoulder pain (~2019) Carpal tunnel syndrome (~2019) Ankle pain (~2019) Foot pain (~2019) Painful menstrual periods (~1999) Irregular menstrual cycle (~1999) Heavy menstrual period (~2019) Hemorrhoid Pituitary adenoma (~03/2021) Hypothyroidism (~2007) Hypertension (~2019) Bran disease (~03/2022) Surgical History (Updated 12/26/24 @ 09:12 by Mable Nye RN) History of gynecologic surgery (11/24/24) History of brain surgery (~03/2022) Hx of cholecystectomy (~2010) Social History household members: family and children Smoking Status: Never smoker alcohol intake: current Discharge Assessment & Plan Assessment and Plan Assessment: 34yo POD1 s/p LSCH with A/P repair and SSLF Plan of Treatment: appropriate postoperative course dc to home with routine postoperative restrictions, care instructions Discharge Plan Discharge Plan Patient Disposition: Home Provider Discharge Comment: Nothing in the vagina for 6 weeks. Tub baths are ok after the first 2 weeks if the tub is cleaned well first. NO HEAVY LIFTING (more than 10-15lbs) for 6 weeks. No exercise more than gentle walking for the first 2 weeks. Discharge orders & Medications Discharge Orders: Discharge (Order); Ordered 01/02/25 Ordered By: Marycarmen Malone Prescriptions: New ibuprofen 800 mg tablet 800 mg PO Q8H Qty: 30 0RF acetaminophen 500 mg tablet 1,000 mg PO Q8HR Qty: 30 0RF lactulose 10 gram packet 20 g PO BID PRN (Reason: laxative effect) Qty: 15 5RF oxycodone 5 mg capsule 5 mg PO Q6H PRN (Reason: pain) Qty: 20 0RF Continued [employer] Thyroid 180 mg tablet 180 mg PO DAILY Norditropin FlexPro 15 mg/1.5 mL (10 mg/mL) pen injector See Rx Instructions .ROUTE .COMPLEX Patient Comments: [NO ORIGINAL SIG] Rx Instructions: 0.05mls SQ daily Discontinued sennosides [Senna Lax] 8.6 mg tablet 8.6 mg PO DAILY PRN (Reason: constipation) Qty: 30 0RF fluconazole 150 mg tablet 150 mg PO Q3D Qty: 2 0RF Follow up/Referrals: Isi Cramer ND [Primary Care Provider] - Diet/Activity/Treatments Diet: Regular Skin/Wound/Dressing Care Report to your healthcare provider any signs of infection, such as:: increased pain and unusual drainage Visit Report/Discharge Packet Stand Alone Forms: Patient Portal/API Discharge Data Primary Care Provider: Isi Cramer Attending Provider: Marycarmen Malone Quality VTE Deep Vein Thrombosis/Pulmonary Embolism Present on Admission: No IH PROFEE Charge Codes Discharge inpatient/observation: [id number]
[2025-01-03 08:00] VITALS: BP 87/51; PULSE 67; RESP 16; TEMP 36.4; O2SAT 99
[2025-01-03] MEDS: SODIUM CHLORIDE 0.9% FLUSH 10 ML IV (08:14)
[2025-01-03] MEDS: ACETAMINOPHEN 325 MG TABLET 650 MG PO (08:14)
--- NOTE | 2025-01-03 10:18 | PC.NURSE ---
D/c instructions reviewed with pt. Discussed s/s of infection, medication options to prevent constipation, and not to drive while taking narcotics. IV removed. Pt exited via w/c with CLINICAL ASST to private vehicle.
--- NOTE | 2025-01-03 11:23 | CM.DPNOTE ---
DCP Note REPRODUCTION ORDER PROCESSOR reviewed EMR Per chart review, pt did not dc last night due to concerns about voiding independently. Per chart/RN, pt able to void late last night. Per chart, pt dc reordered for today. Per dc summary, not about consult to social security specialist about pt concerns about losing her job? REPRODUCTION ORDER PROCESSOR attempted to meet with pt in room after morning rounds due to triaging needs, pt already left. P: dc home with partner support and OP f/u. no identified CM needs. CM team will continue to follow as needed SAYRA Knott
== END 2025-01-03 10:21 | disposition home or self-care (01) ==
LOC: OR 06:18 → AC 06:18
PROVIDERS: PCP Massage Therapist; Referring Provider Obstetrics & Gynecology; Visit Provider Obstetrics & Gynecology
PROC: 0UT94ZL Resection of Uterus, Supracervical, Percutaneous Endoscopic Approach (ICD-10-PCS; CPT 58542; principal; 2025-01-01 07:45)
PROC: (CPT 58542; 2025-01-01 07:45)
DX: N93.9 Abnormal uterine and vaginal bleeding, unspecified (principal); N83.8 Other noninflammatory disorders of ovary, fallopian tube and broad ligament; N81.2 Incomplete uterovaginal prolapse
CPT/HCPCS: 58542; 57282; 57260; 0241U; 36415; 81025; 82962; 85025; J0131; J0690; J1100; J1171; J1885; J2250; J2270; J2405; J2704; J2795; J3010; J3410

== ENCOUNTER → 2025-02-16 16:14 | Outpatient (CLI) | payer OTHER, SELFPAY ==
[2025-01-01 13:47] VITALS: BMI 21.9
[2025-02-16 17:41] LABS: Hemoglobin A1C% w Est Avg Glu 4.4 % (4.0-6.0)
[2025-02-16 18:11] LABS: Free T4, Direct Thyroxine 1.29 ng/dL (0.78-2.19)
[2025-02-16 18:24] LABS: Follicle Stimulating Hormone 3.66 mIU/mL; Luteinizing Hormone 4.13 mIU/mL
[2025-02-16 18:28] LABS: Thyroid Stimulating Hormone < 0.015 uIU/mL (0.47-4.68)
== END ==
LOC: LAB 16:15
PROVIDERS: PCP Massage Therapist; Referring Provider Obstetrics & Gynecology; Visit Provider Obstetrics & Gynecology
DX: R63.5 Abnormal weight gain (principal)
CPT/HCPCS: 36415; 82670; 82677; 82679; 83001; 83002; 83036; 84144; 84439; 84443; 84999